=== PATIENT | male | born 1985 | race Two or more races ===

== ENCOUNTER 2019-12-19 12:59 | Day surgery (SDC) | payer BC ==
[~2019-12-19] VITALS: Ht 175.3 cm; Wt 77.1 kg
[~2019-12-19 12:59] MED LIST: TRAM50TA2 PO
[2019-12-19] MEDS ORDERED: BUPIVACAINE 0.25% INJ 50ML VIAL ONE (13:14)
[2019-12-19] MEDS ORDERED: ceFAZolin 1GM/50ML 50 ML IV ONE (13:23)
[2019-12-19] MEDS ORDERED: MIDAZOLAM HCL 1MG/1ML-2 ML VIAL ONE (13:25)
[2019-12-19] MEDS ORDERED: fentaNYL CITRATE 100 MCG/2 ML VL ONE (13:25)
[2019-12-19] MEDS ORDERED: hydrALAZINE HCL 20 MG/ML VL IV PRN (14:45)
[2019-12-19] MEDS ORDERED: ONDANSETRON HCL 4 MG/2 ML VIAL IV PRN (14:45)
[2019-12-19] MEDS ORDERED: ePHEDrine SULFATE 50 MG/ML AMP IV PRN (14:45)
[2019-12-19] MEDS ORDERED: KETOROLAC TROMETH 15 mg/ml 1ML VL IV ONE (14:45)
[2019-12-19] MEDS ORDERED: HYDROmorphone HCL 2 MG/ML VL IV PRN (14:45)
[2019-12-19] MEDS: HYDROmorphone HCL 2 MG/ML VL IV PRN ×4 (15:30→16:00)
[2019-12-19 16:27] VITALS: BP 135/71
== END 2019-12-19 16:37 | disposition home or self-care (01) ==
LOC: SUR 12:59
PROVIDERS: ATTEND Orthopaedic Surgery
DX: S86.012A Strain of left Achilles tendon, initial encounter (principal); X58.XXXA Exposure to other specified factors, initial encounter; Y93.67 Activity, basketball; Y92.89 Other specified places as the place of occurrence of the external cause; Y99.8 Other external cause status
CPT/HCPCS: 27650; C1713; J0690; J1170; J1885; J2250; J2405; J3010; J3490